=== PATIENT | female | born 1995 | race Two or more races ===

== ENCOUNTER 2020-03-22 18:00 | Emergency (ER) | payer MEDICAID ==
[~2020-03-22] VITALS: Ht 157.5 cm; Wt 62.6 kg
[2020-03-22 18:55] VITALS: BP 133/90
[2020-03-22] MEDS ORDERED: methylPREDNISolone SOD SUCC 125 MG/2 ML VL IM ONE (19:15)
[2020-03-22] MEDS ORDERED: KETOROLAC TROMETH 60MG/2ML VIAL IM ONE (19:15)
== END 2020-03-22 20:36 | disposition home or self-care (01) ==
LOC: ER 18:02
DX: K14.8 Other diseases of tongue (principal); T40.7X5A Adverse effect of cannabis (derivatives), initial encounter; B37.9 Candidiasis, unspecified; Y92.89 Other specified places as the place of occurrence of the external cause
CPT/HCPCS: 96372; 99284; J1885; J2930

== ENCOUNTER 2020-12-17 03:27 | Emergency (ER) | payer MEDICAID ==
[~2020-12-17] VITALS: Ht 157.5 cm; Wt 64.4 kg
[2020-12-17 03:28] VITALS: BP 118/74
== END 2020-12-17 05:10 | disposition left against medical advice (07) ==
LOC: ER 03:27
DX: O20.8 Other hemorrhage in early pregnancy (principal); Z3A.00 Weeks of gestation of pregnancy not specified; Z53.21 Procedure and treatment not carried out due to patient leaving prior to being seen by health care provider

== ENCOUNTER 2020-12-17 22:13 | Emergency (ER) | payer MEDICAID ==
[~2020-12-17] VITALS: Ht 157.5 cm; Wt 64.4 kg
[2020-12-17 22:15] VITALS: BP 131/89
[2020-12-17 23:23] LABS: Basophils # (auto) 0.1 10 ^3/uL (0-0.2); Hemoglobin 11.4 g/dL (12.2-16.2); Lymphocytes # (auto) 2.4 10 ^3/uL (0.4-5.4); Mean Corpuscular Hgb Conc. 33.2 g/dL (32.0-36.0); Monocytes # (auto) 0.9 10 ^3/uL (0-1.3); Neutrophils # (auto) 6.2 10 ^3/uL (1.6-8.6); Red Cell Distribution Width 22.1 % (11.8-14.3); White Blood Cell 9.6 10^3/uL (4.4-10.8)
[2020-12-17 23:26] LABS: Basophils % (auto) 0.9 % (0.0-2.0); Eosinophils # (auto) 0.1 10 ^3/uL (0-0.8); Eosinophils % (auto) 0.6 % (0.0-7.0); Hematocrit 34.2 % (36.0-46.0); Lymphocytes % (auto) 24.6 % (10.0-50.0); Mean Corpuscular Hemoglobin 24.8 pg (28.0-32.0); Mean Corpuscular Volume 74.5 fL (80.0-100.0); Monocytes % (auto) 8.9 % (0.0-12.0); Nucleated Red Blood Cells % 0.1 %; Platelet Count (auto) 335 10^3/uL (140-450); Red Blood Cells 4.59 10^6/uL (4.0-5.20)
[2020-12-17 23:53] LABS: Calcium 8.5 mg/dL (8.5-10.1); Potassium 3.2 mmol/L (3.5-5.1)
[2020-12-18 00:08] LABS: Albumin 3.9 g/dL (3.4-5.0); BUN/Creatinine Ratio 12.8; Bilirubin, Total 0.3 mg/dL (0.2-1.0); Total Protein 7.2 g/dL (6.4-8.2)
[2020-12-18 00:18] LABS: Urine Bacteria FEW /hpf (None Seen); Urine Blood 3+ /uL (Negative); Urine Mucus MANY (None Seen); Urine Specific Gravity 1.031 (1.001-1.035); Urine WBC 35 /hpf (0 - 5)
[2020-12-18 00:34] LABS: Amphetamine Screen, Urine POSITIVE (NEGATIVE); Barbiturate Scree,Urine NEGATIVE (NEGATIVE); Benzodiazephine Screen, Urine NEGATIVE (NEGATIVE); Cannabinoid Screen, Urine POSITIVE (NEGATIVE); Cocaine Screen, Urine NEGATIVE (NEGATIVE); Phencyclidine Screen, Urine NEGATIVE (NEGATIVE)
[2020-12-18 00:41] LABS: Opiate Scree,Urine NEGATIVE (NEGATIVE)
== END 2020-12-18 02:32 | disposition left against medical advice (07) ==
LOC: ER 22:13
DX: O20.8 Other hemorrhage in early pregnancy (principal); Z3A.00 Weeks of gestation of pregnancy not specified; Z53.21 Procedure and treatment not carried out due to patient leaving prior to being seen by health care provider
CPT/HCPCS: 36415; 76801; 76817; 80053; 80307; 81001; 84702; 85025

== ENCOUNTER 2020-12-18 15:21 | Emergency (ER) | payer MEDICAID ==
[~2020-12-18] VITALS: Ht 157.5 cm; Wt 64.4 kg
[2020-12-18 19:19] LABS: Albumin 3.9 g/dL (3.4-5.0); Calcium 8.8 mg/dL (8.5-10.1); Potassium 4.1 mmol/L (3.5-5.1)
[2020-12-18 19:20] LABS: Basophils # (auto) 0.1 10 ^3/uL (0-0.2); Eosinophils # (auto) 0.1 10 ^3/uL (0-0.8); Hemoglobin 11.9 g/dL (12.2-16.2); Monocytes # (auto) 0.8 10 ^3/uL (0-1.3)
[2020-12-18 19:22] LABS: BUN/Creatinine Ratio 16.4; Bilirubin, Total 0.8 mg/dL (0.2-1.0); Hematocrit 36.7 % (36.0-46.0); Lymphocytes # (auto) 1.7 10 ^3/uL (0.4-5.4); Lymphocytes % (auto) 17.3 % (10.0-50.0); Mean Corpuscular Hemoglobin 24.7 pg (28.0-32.0); Mean Corpuscular Hgb Conc. 32.6 g/dL (32.0-36.0); Mean Corpuscular Volume 75.8 fL (80.0-100.0); Monocytes % (auto) 7.7 % (0.0-12.0); Neutrophils # (auto) 7.3 10 ^3/uL (1.6-8.6); Red Blood Cells 4.84 10^6/uL (4.0-5.20); Red Cell Distribution Width 21.6 % (11.8-14.3); Total Protein 7.4 g/dL (6.4-8.2); White Blood Cell 10.1 10^3/uL (4.4-10.8)
[2020-12-18] MEDS ORDERED: ACETAMINOPHEN 325 MG TAB PO ONE (20:00)
[2020-12-18 21:08] LABS: Urine Bacteria MOD /hpf (None Seen); Urine Blood 3+ /uL (Negative); Urine Mucus MODERATE (None Seen); Urine Specific Gravity 1.025 (1.001-1.035); Urine WBC 248 /hpf (0 - 5)
[2020-12-18 23:41] LABS: Basophils # (auto) 0.1 10 ^3/uL (0-0.2); Lymphocytes # (auto) 2.2 10 ^3/uL (0.4-5.4); Monocytes # (auto) 0.9 10 ^3/uL (0-1.3)
[2020-12-18 23:43] LABS: Basophils % (auto) 0.8 % (0.0-2.0); Eosinophils # (auto) 0.2 10 ^3/uL (0-0.8); Eosinophils % (auto) 1.4 % (0.0-7.0); Hematocrit 35.9 % (36.0-46.0); Hemoglobin 11.7 g/dL (12.2-16.2); Lymphocytes % (auto) 20.2 % (10.0-50.0); Mean Corpuscular Hemoglobin 24.5 pg (28.0-32.0); Mean Corpuscular Hgb Conc. 32.6 g/dL (32.0-36.0); Mean Corpuscular Volume 75.2 fL (80.0-100.0); Monocytes % (auto) 8.1 % (0.0-12.0); Neutrophils # (auto) 7.6 10 ^3/uL (1.6-8.6); Neutrophils % (auto) 69.5 % (37.0-80.0); Nucleated Red Blood Cells % 0.1 %; Red Blood Cells 4.77 10^6/uL (4.0-5.20); Red Cell Distribution Width 22.3 % (11.8-14.3); White Blood Cell 10.9 10^3/uL (4.4-10.8)
[2020-12-18 23:55] LABS: BUN/Creatinine Ratio 18.9; Calcium 8.8 mg/dL (8.5-10.1); Potassium 3.8 mmol/L (3.5-5.1)
[2020-12-18 23:57] LABS: INR 0.97 (0.9-1.15); Partial Thromboplastin Time 23.9 sec (23.0-31.2)
[2020-12-19 10:14] VITALS: BP 128/83
== END 2020-12-19 10:46 | disposition short-term general hospital (02) ==
LOC: ER 15:21
DX: O20.8 Other hemorrhage in early pregnancy (principal); M54.9 Dorsalgia, unspecified; Z3A.01 Less than 8 weeks gestation of pregnancy; Z20.822 Contact with and (suspected) exposure to COVID-19
CPT/HCPCS: 36415; 76801; 76817; 80048; 80053; 81001; 84702; 85025; 85610; 85730; 86850; 86900; 86901; 87426; 93005

== ENCOUNTER 2021-08-07 18:13 | Emergency (ER) | payer MEDICAID ==
[~2021-08-07] VITALS: Ht 157.5 cm; Wt 72.6 kg
[2021-08-07 18:17] VITALS: BP 149/93
[2021-08-07] MEDS ORDERED: SODIUM CHLORIDE 0.9% 1,000 ML IVB ONE (19:15)
[2021-08-07] MEDS ORDERED: IOHEXOL 300 MG/ML 100ML BOTTLE IJ ONE ×2 (20:26→20:29)
== END 2021-08-07 22:08 | disposition left against medical advice (07) ==
LOC: ER 18:13
DX: K59.00 Constipation, unspecified (principal); G89.18 Other acute postprocedural pain; F12.10 Cannabis abuse, uncomplicated
CPT/HCPCS: 99281; Q9967